=== PATIENT | male | born 1950 | race Caucasian/White ===

== ENCOUNTER 2019-02-24 08:00 | Inpatient (IN) | payer OTHER ==
[~2019-02-24] VITALS: Ht 165.1 cm; Wt 56.2 kg
[2019-03-01] MEDS ORDERED: OXYCODONE PO (15:46)
[2019-03-02] MEDS ORDERED: OXYC1TAB9 (10:37)
[2019-03-02] MEDS ORDERED: PERCOCET 5-3251 EACH PO (11:47)
[2019-03-05] MEDS ORDERED: PERCOCET 5-3251 EACH PO (07:46)
[2019-03-05] MEDS ORDERED: CEFADROXIL500 MG PO (07:46)
[2019-03-05] MEDS ORDERED: ELIQUIS2.5 MG PO (07:46)
== END 2019-03-05 10:08 | disposition home or self-care (01) | DRG 470 ==
LOC: SURH 03-02 05:35 → O/R 03-02 05:35 → SURH 03-02 08:00
PROVIDERS: ADMIT Orthopaedic Surgery
PROC: 3E0F7GC Introduction of Other Therapeutic Substance into Respiratory Tract, Via Natural or Artificial Opening (ICD-10-PCS; 2019-03-02)
PROC: 0SR90J9 Replacement of Right Hip Joint with Synthetic Substitute, Cemented, Open Approach (ICD-10-PCS; principal; 2019-03-02 16:15)
DX: M16.11 Unilateral primary osteoarthritis, right hip (principal); J44.1 Chronic obstructive pulmonary disease with (acute) exacerbation; D62 Acute posthemorrhagic anemia; M25.751 Osteophyte, right hip; M70.61 Trochanteric bursitis, right hip